=== PATIENT | female | born 1950 | race Caucasian/White ===

== ENCOUNTER 2016-11-19 21:14 | Inpatient (IN) | payer MEDICARE, MEDICAID ==
[~2016-11-19 21:14] MED LIST: ASPI81TA82 PO; CALTTAB PO; DARU1TAB PO; DOLU1TAB PO; DRIS50002 PO; FENO130C PO; IBUP-232 PO; LEXA10TA PO; LIPI40TA PO; OSEL75 PO; REME15TA PO; TAB-TAB PO; TRUVTAB2 PO; ZOFR4TAB3 PO; ZOFR4TAB3 SL; ZOVI800T13 PO
[2016-11-19 21:15] VITALS: O2SAT 100
[2016-11-19] MEDS ORDERED: ceFAZolin INJ 1,000 MG VIAL ONE (21:16)
[2016-11-19] MEDS ORDERED: ceFAZolin 2 GM PREMIX 50 ML ONE (21:17)
[2016-11-19] MEDS ORDERED: GENTAMICIN 80 MG PREMIX 100 ML ONE (21:17)
[2016-11-19] MEDS ORDERED: PROPOFOL 500 MG/50 ML INJ 50 ML ONE (21:18)
[2016-11-19] MEDS ORDERED: ONDANSETRON HCL 4 MG/2 ML VIAL ONE ×2 (21:18→22:08)
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
[2016-11-19] MEDS ORDERED: DIPHTH/TETANUS/ACEL PERTUSSIS (BOOSTER) 0.5 ML VIAL/PFS IM ONE (21:51)
[2016-11-19] MEDS ORDERED: ceFAZolin 2 GM PREMIX 50 ML IV STA (21:51)
[2016-11-19] MEDS ORDERED: IOHEXOL 350 MG/ML 10 ML VIAL (for RAD DIAG) IV ONE (21:53)
[2016-11-19 21:55] LABS: I-STAT POTASSIUM 4.4 MMOL/L (3.5-4.9); I-STAT SODIUM 144 MMOL/L (138-146)
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
[2016-11-19 22:14] LABS: AUTOMATED NEUTROPHIL # 3.6 TH/MM3 (1.8-7.7); BASOPHIL % 0.4 % (0.0-2.0); EOSINOPHIL # 0.1 TH/MM3 (0-0.4); EOSINOPHIL % 1.7 % (0.0-4.0); HEMATOCRIT 29.2 % (35.0-46.0); HEMO FLAGS DIFF FINAL; LYMPH % 29.7 % (9.0-44.0); LYMPHOCYTE # 1.7 TH/MM3 (1.0-4.8); MEAN CORPUSCULAR HEMOGLOBIN 33.8 PG (27.0-34.0); MEAN CORPUSCULAR HGB CONC 33.4 % (32.0-36.0); MONO % 7.1 % (0.0-8.0); NEUT % 61.1 % (16.0-70.0); PLATELET COUNT 223 TH/MM3 (150-450); RED BLOOD COUNT 2.89 MIL/MM3 (4.00-5.30); RED CELL DISTRIBUTION WIDTH 15.2 % (11.6-17.2); WHITE BLOOD COUNT 5.8 TH/MM3 (4.0-11.0)
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
[2016-11-19] MEDS ORDERED: HYDROmorphone HCL PF 1 MG/ML VIAL ONE (22:21)
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
[2016-11-19] MEDS ORDERED: ONDANSETRON HCL 4 MG/2 ML VIAL IV PRN (22:30)
[2016-11-19] MEDS ORDERED: MISCELLANEOUS NURSING INFORMATION XX SCH (22:30)
[2016-11-19] MEDS ORDERED: SODIUM CHLORIDE 0.9% FLUSH 10 ML FLUSH IV FLUSH PRN (22:30)
[2016-11-19] MEDS ORDERED: CHLORHEXIDINE GLUCONATE 2 % 1 PACK (2 CLOTHS) TOP PRN (22:30)
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
[2016-11-19 22:39] LABS: APTT (PATIENT) 23.8 SEC (24.3-30.1); PROTHROMBIN TIME - PATIENT 11.6 SEC (9.8-11.6)
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
[2016-11-20] VITALS (18 sets, daily range): BP systolic 88–165; BP diastolic 52–76; PULSE 70–97; RESP 14–25; TEMP 98–98.6; O2SAT 93–99
[2016-11-20] MEDS: HYDROmorphone HCL PF 1 MG/ML VIAL IV PRN ×4 (00:43→20:24)
[2016-11-20] MEDS: SODIUM CHLOR 0.9% 1000 ML INJ 1,000 ML IV SCH ×3 (00:45→18:31)
[2016-11-20 03:44] LABS: AUTOMATED NEUTROPHIL # 5.7 TH/MM3 (1.8-7.7); BASOPHIL % 0.2 % (0.0-2.0); EOSINOPHIL % 0.2 % (0.0-4.0); HEMATOCRIT 26.3 % (35.0-46.0); HEMO FLAGS DIFF FINAL; LYMPH % 11.8 % (9.0-44.0); LYMPHOCYTE # 0.8 TH/MM3 (1.0-4.8); MEAN CELL VOLUME 101.2 FL (80.0-100.0); MEAN CORPUSCULAR HEMOGLOBIN 34.4 PG (27.0-34.0); MONO % 7.4 % (0.0-8.0); NEUT % 80.4 % (16.0-70.0); PLATELET COUNT 200 TH/MM3 (150-450); WHITE BLOOD COUNT 7.1 TH/MM3 (4.0-11.0)
[2016-11-20] MEDS: CHLORHEXIDINE GLUCONATE 2 % 1 PACK (2 CLOTHS) TOP SCH (04:00)
[2016-11-20 04:07] LABS: BICARBONATE 24.2 MEQ/L (21.0-32.0)
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
[2016-11-20 04:59] LABS: ALT (GPT) 23 U/L (10-53); ANION GAP 10 MEQ/L (5-15); AST (GOT) 38 U/L (15-37); BICARBONATE 22.3 MEQ/L (21.0-32.0); BLOOD UREA NITROGEN 19 MG/DL (7-18); CHLORIDE 112 MEQ/L (98-107); SODIUM (NA) 144 MEQ/L (136-145)
[2016-11-20 05:25] LABS: ALKALINE PHOSPHATASE 27 U/L (45-117); INDIRECT BILIRUBIN 0.1 MG/DL (0.0-0.8); TOTAL BILIRUBIN ADULT 0.2 MG/DL (0.2-1.0)
[2016-11-20] MEDS ORDERED: POTASSIUM PHOSPHATE INJ 30 MMOL in SODIUM CHLOR 0.9% 250 ML INJ 250 ML IV PRN (05:45)
[2016-11-20] MEDS ORDERED: MAGNESIUM SULFATE INJ 2 GM in SODIUM CHLORIDE 0.9% INJ 96 ML IV PRN (05:45)
[2016-11-20] MEDS ORDERED: RESP: ALBUTEROL 2.5 MG/3 ML NEB (PRN) NEB (05:45)
[2016-11-20] MEDS ORDERED: SODIUM PHOSPHATE INJ 30 MMOL in SODIUM CHLOR 0.9% 250 ML INJ 240 ML IV PRN (05:45)
[2016-11-20] MEDS ORDERED: POTASSIUM PHOSPHATE MONOBASIC 500 MG TAB PO/TUBE PRN (05:45)
[2016-11-20] MEDS ORDERED: MAGNESIUM SULFATE INJ 4 GM in SODIUM CHLORIDE 0.9% INJ 92 ML IV PRN (05:45)
[2016-11-20] MEDS ORDERED: POTASSIUM CHLOR 40 MEQ PREMIX 100 ML IV PRN ×2 (05:45)
[2016-11-20] MEDS ORDERED: POTASSIUM PHOSPHATE MONOBASIC 500 MG TAB PO PRN (05:45)
[2016-11-20] MEDS ORDERED: POTASSIUM CHLOR 20 MEQ PREMIX 100 ML IV PRN ×2 (05:45)
[2016-11-20] MEDS ORDERED: oxyCODONE/ACETAMINOPHEN 10 MG/325 MG TAB PO PRN (05:45)
[2016-11-20] MEDS ORDERED: MAGNESIUM OXIDE 400 MG TAB PO PRN (05:45)
--- NOTE | 2016-11-20 06:01 | RADRPT ---
EXAM DATE/TIME: 11/20/2016 05:23 [facility] COMPARISON: CHEST SINGLE AP, November 19, 2016, 21:08. INDICATIONS : Shortness of breath. MEDICAL HISTORY : None. SURGICAL HISTORY : None. ENCOUNTER: Subsequent ACUITY: 1 day PAIN SCORE: 0/10 LOCATION: Bilateral chest FINDINGS: A single view of the chest demonstrates minimal bibasilar atelectasis. The cardiomediastinal contour s are unremarkable. Right clavicle and right-sided rib fractures. CONCLUSION: Bibasilar atelectasis. Guy Walker MD on November 20, 2016 at 5:57 Board Certified Radiologist. This report was verified electronically.
[2016-11-20] MEDS: PANTOPRAZOLE SODIUM 40 MG VIAL IV PUSH SCH (06:27)
[2016-11-20] MEDS: LACTULOSE SYRUP 20 GM/30 ML CUP PO SCH (07:36)
[2016-11-20] MEDS: SODIUM CHLORIDE 0.9% FLUSH 10 ML FLUSH IV FLUSH SCH ×2 (07:36→20:24)
[2016-11-20] MEDS: METHOCARBAMOL 500 MG TAB PO SCH ×3 (08:00→23:10)
[2016-11-20] MEDS ORDERED: FAMOTIDINE 20 MG/2 ML VIAL ONE (08:15)
[2016-11-20] MEDS ORDERED: MIDAZOLAM HCL 2 MG/2 ML VIAL ONE (08:15)
[2016-11-20] MEDS: LIDOCAINE HCL 5% PATCH T-DERMAL SCH (09:00)
[2016-11-20] MEDS ORDERED: ceFAZolin INJ 1,000 MG VIAL IV ONE (09:23)
[2016-11-20] MEDS ORDERED: GENTAMICIN IV ONE (09:30)
[2016-11-20] MEDS ORDERED: GENTAMICIN SULFATE 80 MG/2 ML VIAL IRRIGATION ONE (09:31)
[2016-11-20] MEDS: RESP: ALBUTEROL 2.5 MG/IPRATROPIUM 0.5 MG NEB (SCH) NEB ×3 (10:00→21:48)
--- NOTE | 2016-11-20 10:11 | EKG ---
Date Performed: 11/20/2016 Time Performed: 08:11:18 PTAGE: 89 years EKG: Sinus rhythm NONSPECIFIC T-WAVE ABNORMALITY BORDERLINE ECG INTERPRETATION BASED ON A DEFAULT AGE OF 42 YEARS NO PREVIOUS TRACING DOCTOR: Kev Soto Interpretating Date/Time 11/20/2016 10:09:49
--- NOTE | 2016-11-20 10:27 | PD.OP ---
cc: Jaime Baxter MD Operative Report Date of Surgery: Nov 20, 2016 Preoperative Diagnosis: Comminuted open right distal radius and ulnar fractures Postoperative Diagnosis: Procedure: Irrigation and debridement of open right radius fracture, open reduction internal fixation comminuted right distal radius fracture, open reduction fixation comminuted right distal ulna fracture, complex closure right hand laceration 8 cm length Surgeon: Jaime Baxter Development Consultant(s): MALCOLM Wu PA-C The surgical procedure was assisted by my physician business development assistant. My P.A. presence was necessary throughout this case for the manipulation and positioning of the surgical extremity. My P.A. was assisting me throughout the duration of this procedure. The skill set of a physician business development assistant was medically necessary to complete this procedure. During the surgical case the surgical assist was working at the back table and the physician business development assistant was directly assisting me. Operation and Findings: Patient was seen and evaluated preoperatively and found to have a displaced open right distal radius and ulna fracture. Informed consent was obtained after detailed discussion of risk and benefits including bleeding, infection, injury to arteries, nerves, and blood vessels, weakness and numbness of hand, and tendon rupture. Informed consent was obtained. Patient received IV antibiotics prior to incision. Timeout procedure was performed. Operative extremity was prepped with alcohol followed by Hibiclens and draped usual sterile fashion. A standard volar approach to the distal radius was utilized. A 4 inch incision was made over the FCR tendon. Tendon sheath was opened. Pronator quadratus was elevated up. The fracture site was now visualized. The fracture did have intra-articular extension. At this point attention was turned to debridement of open fracture. Fashion muscle were sharply debrided with scalpel and rongeur. The bone fragments were also debrided with curettes. Overall the wound is relatively clean. The wound was now thoroughly irrigated with 3 L of sterile saline. Next attention was turned towards reduction. Traction was applied. The articular surface was reduced. Fracture fragments were manipulated to achieve excellent reduction. K wires were used to hold provisional fixation. Fluoroscopy confirmed appropriate alignment of fracture. A Synthes 2 column variable angle distal radius plate was selected. Plate was provisionally fixed to bone with K wires. 2.7 and 2.4 cortical screws were used to compress plate to bone. Fluoroscopy confirmed appropriate alignment of fracture with well- placed hardware. Multiple 2.4 locking screws were now placed distally. Screws were predrilled and measured for appropriate length. 2 additional screws were placed into the shaft. K wires were removed. Final fluoroscopy revealed excellent of fracture with well-placed hardware. The wound was thoroughly irrigated with sterile saline. Next attention was turned towards the ulna. A 3 inch incision was made over the distal ulna. The subcutaneous border of the ulna was exposed. Fracture was comminuted. Fracture fragments were carefully reduced. A Synthes 2.7 plate was selected. Plate was provisionally held with K wires. Fracture tenaculums were used to hold reduction. 2.4 cortical screws were used to compress plate to bone. Additional locking screws were placed into the shaft as well as into the distal segment. Fluoroscopy confirmed excellent alignment of the ulna. The distal radioulnar joint was reduced. Next attention was turned to hand laceration. Laceration over the volar aspect of the palmar surface of her hand. Laceration extended up towards the MP joints. The lacerations were explored. There was no obvious tendon laceration or involvement. The wound was thoroughly irrigated. At this point attention was turned to closure. Subcutaneous tissues reapproximated with 3-0 PDS. Skin was closed with 3-0 nylon. A combination of vertical mattress and retention sutures were utilized. Next, the remainder of the incisions were closed. Subcutaneous tissue was closed with 3-0 PDS and skin was closed with 3-0 nylon. Sterile dressings were applied with Xeroform, 4 x 4, soft roll, and a well padded splint. Patient was awakened and transferred to recovery room in stable condition Jaime Baxter MD Nov 20, 2016 10:27
[2016-11-20] MEDS ORDERED: ACETAMINOPHEN/HYDROcodone 325 MG/7.5 MG TAB PO PRN (10:30)
[2016-11-20] MEDS ORDERED: *RESP: ALBUTEROL 2.5 MG/3 ML NEB (PRN) PERIprocedural Use ONLY NEB ONE (11:18)
[2016-11-20] MEDS ORDERED: *morphine SULFATE 8 MG/ML PERIprocedure ONLY ONE (11:30)
[2016-11-20] MEDS ORDERED: fentaNYL CITRATE 250 MCG/5 ML AMP ONE (11:33)
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
--- NOTE | 2016-11-20 12:20 | RADRPT ---
EXAM DATE/TIME: 11/20/2016 13:06 [facility] COMPARISON: CHEST SINGLE AP, November 20, 2016, 5:23. INDICATIONS : Short of breath MEDICAL HISTORY : None. SURGICAL HISTORY : None. ENCOUNTER: Initial ACUITY: 1 day PAIN SCORE: Non-responsive. LOCATION: chest FINDINGS: Cardiomegaly and aortic calcification. Patchy basilar airspace disease. No effusions. Osseous structu res are intact. CONCLUSION: Patchy basilar airspace disease suspected. Gregg Lozoya MD on November 20, 2016 at 12:18 Board Certified Radiologist. This report was verified electronically.
[2016-11-20] MEDS ORDERED: ePHEDrine/NS 25 MG/5 ML SYR IV ONE (12:36)
[2016-11-20] MEDS ORDERED: PROPOFOL 200 MG/20 ML AMP IV ONE (12:36)
[2016-11-20] MEDS ORDERED: PHENYLEPH/NS 1000 MCG/10 ML SYR IV ONE (12:37)
[2016-11-20] MEDS ORDERED: ONDANSETRON HCL 4 MG/2 ML VIAL IV PUSH ONE (12:37)
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
--- NOTE | 2016-11-20 13:37 | RADRPT ---
EXAM DATE/TIME: 11/20/2016 09:56 [facility] COMPARISON: WRIST RIGHT LIMITED(AP & LAT), November 19, 2016, 21:08. INDICATIONS : ORIF right wrist. MEDICAL HISTORY : None. SURGICAL HISTORY : None. ENCOUNTER: Subsequent ACUITY: 2 days PAIN SCORE: Non-responsive. LOCATION: Right distal radius and ulna. FINDINGS: Heavily comminuted fracture of the distal radial metaphysis has been operatively stabilized with vola r plate and screw fixation with good alignment. Comminuted ulnar metaphyseal fracture is again seen w ith medial plate and screw fixation. CONCLUSION: ORIF right wrist. Gregg Lozoya MD on November 20, 2016 at 13:35 Board Certified Radiologist. This report was verified electronically.
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
[2016-11-20] MEDS: ceFAZolin 2 GM PREMIX 50 ML IV SCH ×2 (18:29→23:11)
[2016-11-20] MEDS: GENTAMICIN 80 MG PREMIX 100 ML IV SCH (18:30)
[2016-11-20] MEDS: MORPHINE SULFATE 4 MG/ML INJ IV PUSH PRN ×2 (18:43→23:10)
[2016-11-20] MEDS: REMOVE OLD LIDOCAINE PATCH T-DERMAL SCH (20:23)
[2016-11-20] MEDS: CALCIUM/VITAMIN D 250 MG/125 U TAB PO SCH (20:24)
[2016-11-21] VITALS (12 sets, daily range): BP systolic 93–110; BP diastolic 51–58; PULSE 62–87; RESP 12–23; TEMP 98.4–98.6; O2SAT 94–100
[2016-11-21] MEDS: SODIUM CHLOR 0.9% 1000 ML INJ 1,000 ML IV SCH ×2 (00:48→08:48)
[2016-11-21] MEDS: HYDROmorphone HCL PF 1 MG/ML VIAL IV PRN ×5 (01:08→20:17)
[2016-11-21] MEDS: GENTAMICIN 80 MG PREMIX 100 ML IV SCH ×2 (01:08→09:12)
[2016-11-21] MEDS: CHLORHEXIDINE GLUCONATE 2 % 1 PACK (2 CLOTHS) TOP SCH (02:08)
[2016-11-21] MEDS: RESP: ALBUTEROL 2.5 MG/IPRATROPIUM 0.5 MG NEB (SCH) NEB ×4 (03:28→21:12)
[2016-11-21] MEDS: ACETAMINOPHEN/HYDROcodone 325 MG/7.5 MG TAB PO PRN ×3 (03:47→17:48)
[2016-11-21] MEDS: PANTOPRAZOLE SODIUM 40 MG VIAL IV PUSH SCH (06:34)
--- NOTE | 2016-11-21 07:15 | PD.ORT.PN ---
Subjective Subjective Remarks POD 1 s/p ORIF with I&D right open distal radius fx doing well. reports pain in wrist but overall doing ok. Objective Vitals Vital Signs Date Time Temp Pulse Resp B/P Pulse Ox O2 Delivery O2 Flow Rate FiO2 11/21/16 06:00 64 11/21/16 04:47 21 11/21/16 04:00 72 11/21/16 03:00 98.6 62 12 93/51 98 11/21/16 02:00 68 11/21/16 00:00 70 11/20/16 23:15 16 11/20/16 23:00 98.1 72 16 93/55 97 11/20/16 22:00 74 11/20/16 21:50 98 Nasal Cannula 3.00 11/20/16 20:54 21 11/20/16 20:54 21 11/20/16 20:00 70 11/20/16 19:00 98 Nasal Cannula 3.00 11/20/16 19:00 98.2 75 25 88/54 97 11/20/16 18:00 80 11/20/16 16:05 98 Nasal Cannula 3.00 11/20/16 16:00 80 11/20/16 15:00 98.3 83 24 92/52 99 11/20/16 14:00 82 11/20/16 13:00 85 11/20/16 13:00 98.3 97 12 97/60 97 Nasal Cannula 2 11/20/16 13:00 98.6 85 14 94/55 98 11/20/16 12:45 85 12 97/57 97 11/20/16 12:30 88 12 94/63 94 11/20/16 12:15 89 12 99/58 98 11/20/16 12:00 99 11 95/64 95 11/20/16 11:45 96 16 100/58 91 11/20/16 11:30 104 14 105/62 92 11/20/16 11:15 112 14 114/66 90 Simple Mask 6 11/20/16 11:09 98.3 98 14 106/66 92 Simple Mask 6 11/20/16 08:00 88 I/O 11/20/16 11/20/16 11/20/16 11/21/16 11/21/16 11/21/16 07:00 15:00 23:00 07:00 15:00 23:00 Intake Total 684 ml 990 ml 1035 ml 962 ml Output Total 800 ml 475 ml 750 ml Balance -116 ml 515 ml 1035 ml 212 ml Intake Oral 100 ml IV Total 684 ml 490 ml 935 ml 962 ml Other 500 ml Output Urine Total 800 ml 475 ml 750 ml # Voids 2 Result Diagram: 11/20/1631611/20/16316 Objective Remarks RUE: +splint. dressings intact. +elevation. NVI with full sensation to median/ ulnar nerve distribution. Assessment & Plan Assessment and Plan 1) Right Distal Radius/ulna Fxs s/p ORIF - POD 1 -NWB -maintain elevation -maintain splint at all times -if doing well and swelling controlled, potentially home tomorrow -f/u with Dr Tesfaye or PA in 2 weeks Jeffry Castillo Nov 21, 2016 07:15
[2016-11-21] MEDS: ceFAZolin 2 GM PREMIX 50 ML IV SCH ×2 (08:24→17:47)
[2016-11-21] MEDS: SODIUM CHLORIDE 0.9% FLUSH 10 ML FLUSH IV FLUSH SCH ×2 (09:00→20:18)
[2016-11-21] MEDS ORDERED: CHOLECALCIFEROL (VIT D3) 5000 UNIT CAP PO SCH (09:00)
[2016-11-21] MEDS: LIDOCAINE HCL 5% PATCH T-DERMAL SCH (09:00)
[2016-11-21] MEDS: LACTULOSE SYRUP 20 GM/30 ML CUP PO SCH (09:00)
[2016-11-21] MEDS: METHOCARBAMOL 500 MG TAB PO SCH ×2 (09:10→17:48)
[2016-11-21] MEDS: CALCIUM/VITAMIN D 250 MG/125 U TAB PO SCH ×2 (09:11→20:16)
[2016-11-21] MEDS ORDERED: CALCIUM CARBONATE CHOLECALCIFE PO SCH (09:15)
[2016-11-21] MEDS ORDERED: ERGOCALCIFEROL 50000 UNIT PO SCH (09:15)
[2016-11-21] MEDS ORDERED: ONDANSETRON ODT 4 MG TAB SL PRN (09:15)
[2016-11-21] MEDS ORDERED: ONDANSETRON ODT 4 MG TAB PO PRN (09:15)
[2016-11-21] MEDS ORDERED: ASPIRIN 81 MG CHEW TAB PO SCH (11:00)
[2016-11-21] MEDS ORDERED: DOLUTEGRAVIR SODIUM 50 MG TAB PO SCH (12:00)
[2016-11-21] MEDS ORDERED: EMTRICITABINE/TENOFOVIR 200 MG/300 MG TAB PO SCH (12:00)
[2016-11-21] MEDS: ENOXAPARIN SODIUM 30 MG/0.3 ML SYRINGE SQ SCH (12:14)
[2016-11-21] MEDS: MULTIVITAMIN TAB PO SCH (12:18)
[2016-11-21] MEDS: ESCITALOPRAM OXALATE 10 MG TAB PO SCH (12:18)
[2016-11-21] MEDS ORDERED: DARUNAVIR COBICISTAT PO SCH (13:00)
[2016-11-21] MEDS ORDERED: ATORVASTATIN 20 MG TAB PO SCH (14:00)
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
[2016-11-21] MEDS: ACYCLOVIR 800 MG TAB PO SCH (15:00)
[2016-11-21] MEDS ORDERED: ASPI-147 PO (16:47)
[2016-11-21] MEDS ORDERED: LIPI40TA PO (16:48)
[2016-11-21] MEDS ORDERED: SENO8.6T5 PO (17:13)
[2016-11-21] MEDS ORDERED: RILP25 PO (17:13)
[2016-11-21] MEDS ORDERED: FENO134C PO (17:13)
[2016-11-21] MEDS ORDERED: MULT-132 PO (17:13)
[2016-11-21] MEDS ORDERED: CALTTAB6 (17:13)
[2016-11-21] MEDS ORDERED: [UNRECOGNIZED DRUG - CODE] PO (17:13)
[2016-11-21] MEDS ORDERED: DARU1TAB2 PO (17:13)
[2016-11-21] MEDS ORDERED: ESTR0.62 VAGINAL (17:13)
[2016-11-21] MEDS ORDERED: DOLU1TAB PO (17:13)
[2016-11-21] MEDS ORDERED: ACYC800T PO (17:13)
[2016-11-21] MEDS ORDERED: PROBCAP4 PO (17:13)
[2016-11-21] MEDS ORDERED: LEXA10TA PO (17:13)
[2016-11-21] MEDS ORDERED: ALIR1INJ SQ (17:13)
[2016-11-21] MEDS ORDERED: LIPI80TA PO (17:13)
[2016-11-21] MEDS ORDERED: ERGO1CAP30 PO (17:13)
[2016-11-21] MEDS ORDERED: REME15TA PO (17:13)
[2016-11-21] MEDS ORDERED: EVOL1INJ SQ (17:13)
[2016-11-21] MEDS: DOCUSATE SODIUM 100 MG CAP PO SCH (17:47)
[2016-11-21] MEDS: FENOFIBRATE 145 MG TAB PO SCH (20:16)
[2016-11-21] MEDS: MIRTAZAPINE 15 MG TAB PO SCH (20:16)
[2016-11-21] MEDS: REMOVE OLD LIDOCAINE PATCH T-DERMAL SCH (20:18)
[2016-11-21] MEDS: MAGNESIUM HYDROXIDE SUSP 30 ML CUP PO SCH (20:18)
[2016-11-22] VITALS (8 sets, daily range): BP systolic 99–138; BP diastolic 56–75; PULSE 76–105; RESP 18–20; TEMP 97.1–98.5; O2SAT 93–95
[2016-11-22] MEDS: ACETAMINOPHEN/HYDROcodone 325 MG/7.5 MG TAB PO PRN ×2 (00:11→06:15)
[2016-11-22] MEDS: METHOCARBAMOL 500 MG TAB PO SCH ×3 (00:12→15:31)
[2016-11-22] MEDS: ENOXAPARIN SODIUM 30 MG/0.3 ML SYRINGE SQ SCH ×3 (00:12→21:10)
[2016-11-22] MEDS: ceFAZolin 2 GM PREMIX 50 ML IV SCH ×2 (00:13→08:25)
[2016-11-22] MEDS: HYDROmorphone HCL PF 1 MG/ML VIAL IV PRN ×2 (03:31→10:21)
[2016-11-22 03:52] LABS: CD4/CD8 RATIO 0.6 (0.86-5.00)
[2016-11-22] MEDS: RESP: ALBUTEROL 2.5 MG/IPRATROPIUM 0.5 MG NEB (SCH) NEB ×4 (04:19→21:04)
[2016-11-22] MEDS: PANTOPRAZOLE SODIUM 40 MG VIAL IV PUSH SCH (05:51)
[2016-11-22] MEDS ORDERED: HYDR-3288 PO (07:10)
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
--- NOTE | 2016-11-22 07:45 | PD.ORT.PN ---
Subjective Subjective Remarks POD 2 s/p ORIF with I&D right open distal radius fx doing well. reports pain in wrist but overall doing ok. Objective Vitals Vital Signs Date Time Temp Pulse Resp B/P Pulse Ox O2 Delivery O2 Flow Rate FiO2 11/22/16 05:45 98.1 76 19 109/68 95 11/22/16 04:25 94 Nasal Cannula 2.00 11/22/16 04:00 18 11/22/16 00:30 98.5 89 18 103/58 94 11/21/16 22:23 Room Air 11/21/16 17:06 98.4 87 18 110/56 95 11/21/16 16:35 94 Nasal Cannula 2.00 11/21/16 14:00 80 11/21/16 12:00 74 11/21/16 12:00 98.6 74 21 100/58 97 11/21/16 10:00 84 11/21/16 08:03 100 Nasal Cannula 2.00 11/21/16 08:00 98.5 72 23 105/54 99 11/21/16 08:00 73 I/O 11/21/16 11/21/16 11/21/16 11/22/16 11/22/16 11/22/16 07:00 15:00 23:00 07:00 15:00 23:00 Intake Total 962 ml 1147 ml 500 ml 700 ml Output Total 750 ml Balance 212 ml 1147 ml 500 ml 700 ml Intake Oral 360 ml 500 ml 700 ml IV Total 962 ml 787 ml Output Urine Total 750 ml # Voids 2 0 2 # Bowel Movements 0 0 0 Result Diagram: 11/20/1631611/20/16316 Objective Remarks RUE: +splint. dressings intact. +colles sling. NVI with full sensation to median /ulnar nerve distribution. Assessment & Plan Assessment and Plan 1) Right Distal Radius/ulna Fxs s/p ORIF - POD 2 -NWB -Colles sling DCd today at bedside -maintain splint at all times -ortho cleared for DC home -f/u with Dr Tesfaye or PA in 2 weeks Jeffry Castillo Nov 22, 2016 07:45
--- NOTE | 2016-11-22 08:03 | RADRPT ---
EXAM DATE/TIME: 11/22/2016 07:04 [facility] COMPARISON: CHEST SINGLE AP, November 20, 2016, 13:06. INDICATIONS : Pain entire anterior chest, cough, short of breath MEDICAL HISTORY : None. SURGICAL HISTORY : Hysterectomy. right wrist ENCOUNTER: Subsequent ACUITY: 3 days PAIN SCORE: 10/10 LOCATION: Bilateral chest FINDINGS: Portable AP view of the chest demonstrates a normal-sized cardiac silhouette with calcification of th e aorta. Lungs are underinflated. There is mild airspace consolidation in the left lower lobe. No ple ural effusion or pneumothorax is visualized. The bones and soft tissues demonstrate no acute finding. CONCLUSION: Persistent mild airspace consolidation in the left lower lobe with improved aeration at the right carla g base. Ryan Kingston MD on November 22, 2016 at 7:57 Board Certified Radiologist. This report was verified electronically.
[2016-11-22] MEDS: SODIUM CHLORIDE 0.9% FLUSH 10 ML FLUSH IV FLUSH SCH ×2 (08:26→21:00)
[2016-11-22] MEDS: MULTIVITAMINS/MINERALS THERAPEUTIC TAB PO SCH (08:26)
[2016-11-22] MEDS: CALCIUM/VITAMIN D 250 MG/125 U TAB PO SCH ×2 (08:26→21:09)
[2016-11-22] MEDS: DOCUSATE SODIUM 100 MG CAP PO SCH ×3 (08:26→16:51)
[2016-11-22] MEDS: ACYCLOVIR 800 MG TAB PO SCH (08:26)
[2016-11-22] MEDS: MULTIVITAMIN TAB PO SCH (08:26)
[2016-11-22] MEDS: LACTULOSE SYRUP 20 GM/30 ML CUP PO SCH (08:26)
[2016-11-22] MEDS: SENNOSIDES 8.6 MG TAB PO SCH (08:26)
[2016-11-22] MEDS: ESCITALOPRAM OXALATE 10 MG TAB PO SCH (08:26)
[2016-11-22] MEDS: LIDOCAINE HCL 5% PATCH T-DERMAL SCH (08:27)
[2016-11-22 08:36] LABS: AUTOMATED NEUTROPHIL # 4.7 TH/MM3 (1.8-7.7); BASOPHIL % 0.3 % (0.0-2.0); EOSINOPHIL % 0.7 % (0.0-4.0); HEMATOCRIT 23.4 % (35.0-46.0); HEMO FLAGS DIFF FINAL; LYMPH % 16.8 % (9.0-44.0); MEAN CELL VOLUME 102.5 FL (80.0-100.0); MEAN CORPUSCULAR HEMOGLOBIN 33.5 PG (27.0-34.0); MEAN CORPUSCULAR HGB CONC 32.7 % (32.0-36.0); MONO % 6.5 % (0.0-8.0); NEUT % 75.7 % (16.0-70.0); PLATELET COUNT 124 TH/MM3 (150-450); RED BLOOD COUNT 2.28 MIL/MM3 (4.00-5.30); RED CELL DISTRIBUTION WIDTH 15.4 % (11.6-17.2); WHITE BLOOD COUNT 6.1 TH/MM3 (4.0-11.0)
[2016-11-22] MEDS: RILPIVIRINE 25 MG TAB PO SCH (09:00)
[2016-11-22 09:06] LABS: ALKALINE PHOSPHATASE 27 U/L (45-117); ALT (GPT) 12 U/L (10-53); AMYLASE 57 U/L (25-115); ANION GAP 4 MEQ/L (5-15); AST (GOT) 28 U/L (15-37); BICARBONATE 26.6 MEQ/L (21.0-32.0); BLOOD UREA NITROGEN 10 MG/DL (7-18); CHLORIDE 111 MEQ/L (98-107); GLOMERULAR FILTRATION RATE 71 ML/MIN (>89); MAGNESIUM 2.1 MG/DL (1.5-2.5); POTASSIUM 3.4 MEQ/L (3.5-5.1); SODIUM (NA) 142 MEQ/L (136-145); TOTAL BILIRUBIN ADULT 0.2 MG/DL (0.2-1.0)
[2016-11-22] MEDS ORDERED: DARUNAVIR PO SCH (10:00)
[2016-11-22] MEDS ORDERED: COBICISTAT 150 MG PO SCH (10:00)
[2016-11-22] MEDS: DOLUTEGRAVIR SODIUM 50 MG TAB PO SCH (10:19)
[2016-11-22] MEDS ORDERED: POTASSIUM CHLORIDE 20 MEQ CONTROLLED RELEASE TAB PO ONE (11:00)
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
[2016-11-22] MEDS ORDERED: oxyCODONE/ACETAMINOPHEN 5 MG/325 MG TAB PO PRN (15:00)
[2016-11-22] MEDS: oxyCODONE/ACETAMINOPHEN 5 MG/325 MG TAB PO PRN ×2 (15:31→21:09)
[2016-11-22] MEDS ORDERED: BISACODYL 10 MG SUPP RECTAL ONE (16:00)
[2016-11-22] MEDS ORDERED: BISACODYL EC 5 MG TABEC PO ONE (16:00)
[2016-11-22] MEDS: REMOVE OLD LIDOCAINE PATCH T-DERMAL SCH (21:00)
[2016-11-22] MEDS ORDERED: ATORVASTATIN 80 MG TAB PO SCH (21:00)
[2016-11-22] MEDS: MAGNESIUM HYDROXIDE SUSP 30 ML CUP PO SCH (21:08)
[2016-11-22] MEDS: ATORVASTATIN 40 MG TAB PO SCH (21:09)
[2016-11-22] MEDS: MIRTAZAPINE 15 MG TAB PO SCH (21:09)
[2016-11-22] MEDS: FENOFIBRATE 145 MG TAB PO SCH (21:09)
[2016-11-23] VITALS (8 sets, daily range): BP systolic 101–122; BP diastolic 59–74; PULSE 89–124; RESP 18–20; TEMP 96.3–100.2; O2SAT 90–95
[2016-11-23] MEDS: oxyCODONE/ACETAMINOPHEN 5 MG/325 MG TAB PO PRN ×2 (03:57→12:43)
[2016-11-23] MEDS: RESP: ALBUTEROL 2.5 MG/IPRATROPIUM 0.5 MG NEB (SCH) NEB ×4 (05:16→21:44)
[2016-11-23 05:50] LABS: AUTOMATED NEUTROPHIL # 3.1 TH/MM3 (1.8-7.7); BASOPHIL % 0.6 % (0.0-2.0); EOSINOPHIL # 0.1 TH/MM3 (0-0.4); EOSINOPHIL % 3.2 % (0.0-4.0); HEMATOCRIT 23.6 % (35.0-46.0); HEMO FLAGS DIFF FINAL; LYMPH % 22.2 % (9.0-44.0); MEAN CELL VOLUME 100.5 FL (80.0-100.0); MEAN CORPUSCULAR HEMOGLOBIN 34.5 PG (27.0-34.0); MEAN CORPUSCULAR HGB CONC 34.3 % (32.0-36.0); MONO % 7.6 % (0.0-8.0); NEUT % 66.4 % (16.0-70.0); PLATELET COUNT 146 TH/MM3 (150-450); RED BLOOD COUNT 2.35 MIL/MM3 (4.00-5.30); RED CELL DISTRIBUTION WIDTH 15.1 % (11.6-17.2); WHITE BLOOD COUNT 4.6 TH/MM3 (4.0-11.0)
[2016-11-23 06:09] LABS: ALT (GPT) 14 U/L (10-53); ANION GAP 6 MEQ/L (5-15); AST (GOT) 33 U/L (15-37); BICARBONATE 29.6 MEQ/L (21.0-32.0); BLOOD UREA NITROGEN 9 MG/DL (7-18); CHLORIDE 106 MEQ/L (98-107); GLOMERULAR FILTRATION RATE 80 ML/MIN (>89); MAGNESIUM 2.1 MG/DL (1.5-2.5); POTASSIUM 3.4 MEQ/L (3.5-5.1); SODIUM (NA) 142 MEQ/L (136-145)
[2016-11-23 06:11] LABS: ALKALINE PHOSPHATASE 34 U/L (45-117); TOTAL BILIRUBIN ADULT 0.6 MG/DL (0.2-1.0)
--- NOTE | 2016-11-23 06:35 | RADRPT ---
EXAM DATE/TIME: 11/23/2016 05:37 [facility] COMPARISON: CHEST SINGLE AP, November 22, 2016, 7:04. INDICATIONS : Shortness of breath, possible pulmonary disease. MEDICAL HISTORY : None. SURGICAL HISTORY : Hysterectomy. ENCOUNTER: Subsequent ACUITY: 4 - 6 days PAIN SCORE: 8/10 LOCATION: Bilateral chest FINDINGS: The cardiac silhouette is normal in transverse diameter. There is left lower lobe atelectasis versus pneumonia. There is prominence of the central pulmonary vasculature with indistinct vascular margins compatible with vascular congestion but no evidence of overt failure. CONCLUSION: 1. Cardiomegaly and findings of vascular congestion without overt failure. There has been no signific ant change when compared to the prior exam. Wilber Rodriguez MD on November 23, 2016 at 6:33 Board Certified Radiologist. This report was verified electronically.
[2016-11-23] MEDS ORDERED: MAGNESIUM CITRATE SOLN 300 ML BTL PO ONE (07:00)
[2016-11-23] MEDS ORDERED: POTASSIUM CHLORIDE 20 MEQ CONTROLLED RELEASE TAB PO ONE (07:15)
[2016-11-23] MEDS: METHOCARBAMOL 500 MG TAB PO SCH ×3 (07:53→17:03)
[2016-11-23] MEDS: MULTIVITAMIN TAB PO SCH (08:15)
[2016-11-23] MEDS: DOCUSATE SODIUM 100 MG CAP PO SCH ×3 (08:15→17:03)
[2016-11-23] MEDS: POLYETHYLENE GLYCOL 17 GM PKG PO SCH (08:15)
[2016-11-23] MEDS: SENNOSIDES 8.6 MG TAB PO SCH (08:15)
[2016-11-23] MEDS: ESCITALOPRAM OXALATE 10 MG TAB PO SCH (08:15)
[2016-11-23] MEDS: SODIUM CHLORIDE 0.9% FLUSH 10 ML FLUSH IV FLUSH SCH ×2 (08:15→21:00)
[2016-11-23] MEDS: LACTULOSE SYRUP 20 GM/30 ML CUP PO SCH (08:15)
[2016-11-23] MEDS: ACYCLOVIR 800 MG TAB PO SCH (08:16)
[2016-11-23] MEDS: RILPIVIRINE 25 MG TAB PO SCH (08:16)
[2016-11-23] MEDS: MULTIVITAMINS/MINERALS THERAPEUTIC TAB PO SCH (08:16)
[2016-11-23] MEDS: LIDOCAINE HCL 5% PATCH T-DERMAL SCH (08:17)
[2016-11-23] MEDS: DOLUTEGRAVIR SODIUM 50 MG TAB PO SCH (08:56)
[2016-11-23] MEDS: ENOXAPARIN SODIUM 30 MG/0.3 ML SYRINGE SQ SCH ×2 (11:10→21:30)
[2016-11-23] MEDS: CALCIUM/VITAMIN D 250 MG/125 U TAB PO SCH ×2 (12:41→21:00)
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
[2016-11-23] MEDS: ACETAMINOPHEN/HYDROcodone 325 MG/5 MG TAB PO PRN (19:16)
[2016-11-23] MEDS: REMOVE OLD LIDOCAINE PATCH T-DERMAL SCH (21:00)
[2016-11-23] MEDS: MAGNESIUM HYDROXIDE SUSP 30 ML CUP PO SCH (21:29)
[2016-11-23] MEDS: ATORVASTATIN 40 MG TAB PO SCH (21:29)
[2016-11-23] MEDS: FENOFIBRATE 145 MG TAB PO SCH (21:29)
[2016-11-23] MEDS: MIRTAZAPINE 15 MG TAB PO SCH (21:29)
[2016-11-24] MEDS: METHOCARBAMOL 500 MG TAB PO SCH ×3 (00:30→16:36)
[2016-11-24 00:39] VITALS: BP 109/67; PULSE 109; RESP 19; TEMP 98.9; O2SAT 93
[2016-11-24] MEDS: RESP: ALBUTEROL 2.5 MG/IPRATROPIUM 0.5 MG NEB (SCH) NEB (04:08)
[2016-11-24 04:15] VITALS: O2SAT 95
[2016-11-24 04:48] VITALS: BP 119/72; PULSE 107; RESP 20; TEMP 99.1; O2SAT 95
[2016-11-24] MEDS: ACETAMINOPHEN/HYDROcodone 325 MG/5 MG TAB PO PRN ×3 (07:10→16:36)
[2016-11-24] MEDS: MULTIVITAMINS/MINERALS THERAPEUTIC TAB PO SCH (08:35)
[2016-11-24] MEDS: LACTULOSE SYRUP 20 GM/30 ML CUP PO SCH (08:36)
[2016-11-24] MEDS: POLYETHYLENE GLYCOL 17 GM PKG PO SCH (08:36)
[2016-11-24] MEDS: LIDOCAINE HCL 5% PATCH T-DERMAL SCH (08:36)
[2016-11-24] MEDS: DOLUTEGRAVIR SODIUM 50 MG TAB PO SCH (08:38)
[2016-11-24] MEDS: DOCUSATE SODIUM 100 MG CAP PO SCH ×2 (08:38→12:16)
[2016-11-24] MEDS: ACYCLOVIR 800 MG TAB PO SCH (08:39)
[2016-11-24] MEDS: ESCITALOPRAM OXALATE 10 MG TAB PO SCH (08:40)
[2016-11-24] MEDS: SENNOSIDES 8.6 MG TAB PO SCH (08:41)
[2016-11-24] MEDS: RILPIVIRINE 25 MG TAB PO SCH (08:41)
[2016-11-24] MEDS: MULTIVITAMIN TAB PO SCH (08:41)
[2016-11-24] MEDS: SODIUM CHLORIDE 0.9% FLUSH 10 ML FLUSH IV FLUSH SCH (08:42)
[2016-11-24] MEDS ORDERED: ASPIRIN 81 MG CHEW TAB PO SCH (09:00)
[2016-11-24 10:11] VITALS: O2SAT 94
[2016-11-24] MEDS: ENOXAPARIN SODIUM 30 MG/0.3 ML SYRINGE SQ SCH (12:18)
[2016-11-24 12:39] VITALS: BP 111/66; PULSE 95; RESP 20; TEMP 97.6; O2SAT 93
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
[2016-11-24] MEDS: CALCIUM/VITAMIN D 250 MG/125 U TAB PO SCH (14:22)
[2016-12-06] MEDS ORDERED: HYDR-3288 PO (17:00)
== END 2016-11-24 17:02 | disposition home health service (06) | DRG 511 ==
LOC: NEPI 21:14 → NEDA 22:31 → MERGE 22:31 → EDBD 22:31 → N03A 22:47 → N05A 11-21 16:34
PROVIDERS: ADMIT Surgery Trauma Surgery; ATTEND Surgery Trauma Surgery
PROC: 0PSKXZZ Reposition Right Ulna, External Approach (ICD-10-PCS; 2016-11-19)
PROC: 0PSHXZZ Reposition Right Radius, External Approach (ICD-10-PCS; 2016-11-19)
PROC: 0PSH04Z Reposition Right Radius with Internal Fixation Device, Open Approach (ICD-10-PCS; 2016-11-20)
PROC: 0JQJ0ZZ Repair Right Hand Subcutaneous Tissue and Fascia, Open Approach (ICD-10-PCS; 2016-11-20)
PROC: 0PSK04Z Reposition Right Ulna with Internal Fixation Device, Open Approach (ICD-10-PCS; principal; 2016-11-20 08:56)
DX: S52.501B Unspecified fracture of the lower end of right radius, initial encounter for open fracture type I or II (principal); S22.41XA Multiple fractures of ribs, right side, initial encounter for closed fracture; N17.9 Acute kidney failure, unspecified; D62 Acute posthemorrhagic anemia; S52.601B Unspecified fracture of lower end of right ulna, initial encounter for open fracture type I or II; S61.411A Laceration without foreign body of right hand, initial encounter; S42.021A Displaced fracture of shaft of right clavicle, initial encounter for closed fracture; E78.5 Hyperlipidemia, unspecified; R74.8 Abnormal levels of other serum enzymes; V49.50XA Passenger injured in collision with unspecified motor vehicles in traffic accident, initial encounter; Z21 Asymptomatic human immunodeficiency virus [HIV] infection status
CPT/HCPCS: 25605; 70450; 71010; 71260; 72125; 72170; 73100; 74177; 76000; 76700; 80048; 80053; 80076; 80307; 82150; 82435; 82565; 82607; 82947; 83690; 83735; 84132; 84295; 84520; 85025; 85384; 85610; 85730; 86355; 86357; 86359; 86360; 86850; 86900; 86901; 86920; 87641; 90471; 93005; 94150; 94640; 94664; 94668; 94770; 96361; 96374; 96375; 99291; C1713; C9113; G0390; J0690; J1170; J1580; J1650; J2250; J2270; J2370; J2405; J3010; J7030; J7613; Q9967

== ENCOUNTER → 2016-12-06 | Day surgery (SDC) | payer MEDICARE, MEDICAID ==
[~2016-12-06] VITALS: Ht 152.4 cm; Wt 47.0 kg
[~2016-12-06] MED LIST changes: +ACYC800T PO; +ALIR1INJ SQ; +ASPI-147 PO; -ASPI81TA82 PO; -CALTTAB PO; +CALTTAB6; +CHLORHEXIDINE GLUCONATE 2 % 1 PACK (2 CLOTHS) TOPICAL PRN; +CHLORHEXIDINE GLUCONATE 4% SOLN 120 ML BTL TOPICAL SCH; -DARU1TAB PO; +DARU1TAB2 PO; +DO NOT ADM ANY ANTICOAGULANT DRUGS PRN; -DRIS50002 PO; +ERGO1CAP30 PO; +ESTR0.62 VAGINAL; +EVOL1INJ SQ; -FENO130C PO; +FENO134C PO; +HYDR-3288 PO; -IBUP-232 PO; +INSULIN HUMAN REGULAR 1,000 UNITS/10 ML VIAL SQ PRN; +KETOROLAC TROMETHAMINE 30 MG/ML (IVP) VIAL IVP ONE; +LACTATED RINGER'S 1000 ML INJ 1,000 ML IV ONE; +LACTATED RINGER'S 1000 ML IV PRN; +LIPI80TA PO; +METOPROLOL TARTRATE 25 MG TAB PO PRN; +MIDAZOLAM HCL 2 MG/2 ML VIAL ONE; +MORPHINE SULFATE 4 MG/ML INJ IV PUSH PRN; +MULT-132 PO; +ONDANSETRON HCL 4 MG/2 ML VIAL IV PRN; +ONDANSETRON HCL 4 MG/2 ML VIAL IV PUSH ONE; -OSEL75 PO; +PHENYLEPH/NS 1000 MCG/10 ML SYR IV ONE; +POVIDONE IODINE 5% (ANTISEPSIS KIT) 4 APPLICATIONS EACH NARE PRN; +PROBCAP4 PO; +PROPOFOL 200 MG/20 ML AMP IV ONE; +RILP25 PO; +SENO8.6T5 PO; +SODIUM CHLOR 0.9% 250 ML INJ 250 ML ONE; +SODIUM CHLORID 0.9% 500 ML IV PRN; +SODIUM CHLORIDE 0.9% FLUSH 10 ML FLUSH IV FLUSH PRN; +SODIUM CHLORIDE 0.9% FLUSH 10 ML FLUSH IV FLUSH SCH; -TAB-TAB PO; -TRUVTAB2 PO; +VANCOMYCIN 1000 MG/NS 250 ML (for <70 kg) IV SCH; +VANCOMYCIN HCL 1000 MG VIAL ONE; -ZOFR4TAB3 PO; -ZOFR4TAB3 SL; -ZOVI800T13 PO; +[UNRECOGNIZED DRUG - CODE] PO; +ceFAZolin 2 GM PREMIX 50 ML IV SCH; +ceFAZolin 2 GM PREMIX 50 ML ONE; +fentaNYL CITRATE 250 MCG/5 ML AMP ONE; +oxyCODONE/ACETAMINOPHEN 5 MG/325 MG TAB PO PRN
[2016-12-06 14:29] VITALS: BP 143/76; PULSE 94; RESP 16; TEMP 94.4; O2SAT 98
--- NOTE | 2016-12-06 17:06 | PD.OP ---
cc: Joseph Cai Jr., MD Operative Report Date of Surgery: Dec 06, 2016 Preoperative Diagnosis: #1 right fourth proximal phalanx fracture #2 right fifth middle phalanx fracture Postoperative Diagnosis: Same Procedure: #1 closed reduction pinning right fourth proximal phalanx #2 closed reduction and pinning right fifth middle phalanx fractures Anesthesia: Gen. Surgeon: Joseph Cai Grading Clerk(s): Staff Resident Surgeon: None Operation and Findings: Informed consent was obtained from patient's parents preoperatively. The risk and benefits of surgery were discussed in detail with patient and family. Patient was brought to the operating room and placed on or table. General anesthesia was administered by anesthesiologist. Timeout procedure was performed. At this point attention was turned to reduction. Traction was applied. The fracture was manipulated under fluoroscopy. With gentle manipulation the fractures were reduced. One 6.2 K wire was used to stabilize the fourth finger fracture and a 4.5 K wire was used to stabilize. Multiplanar fluoroscopy confirmed adequate alignment of fracture. A well molded and splint was now applied. Patient had good capillary refill and wwp fingers. Patient was now awakened and transferred to recovery room in stable condition. Joseph Cai Jr., MD Dec 06, 2016 17:06
[2016-12-06 18:20] VITALS: BP 118/68; PULSE 86; RESP 20; TEMP 97.8; O2SAT 97
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
--- NOTE | 2016-12-07 19:27 | EKG ---
Date Performed: 12/06/2016 Time Performed: 14:26:19 PTAGE: 66 years EKG: Sinus rhythm NORMAL ECG PREVIOUS TRACING : 10/21/2015 17.01 Compared to prior tracing no significant change DOCTOR: Wilfredo Su Interpretating Date/Time 12/07/2016 19:26:09
== END | disposition home or self-care (01) ==
LOC: HSDC 13:47
PROVIDERS: ATTEND Orthopaedic Surgery
DX: S62.614A Displaced fracture of proximal phalanx of right ring finger, initial encounter for closed fracture (principal); S62.626A Displaced fracture of middle phalanx of right little finger, initial encounter for closed fracture; E78.5 Hyperlipidemia, unspecified; Z21 Asymptomatic human immunodeficiency virus [HIV] infection status; Z01.810 Encounter for preprocedural cardiovascular examination; V87.7XXA Person injured in collision between other specified motor vehicles (traffic), initial encounter
CPT/HCPCS: 01830; 26735; 73120; 76000; 86850; 86900; 86901; 93005; J0690; J1885; J2250; J2370; J2405; J3010; J3370; J7050; J7120